=== PATIENT | male | born 1960 | race Caucasian/White ===

== ENCOUNTER 2023-11-24 07:33 | Day surgery (SDC) | payer OTHER, SELFPAY ==
[2023-11-22 14:34] VITALS: BMI 34.9
[2023-11-24 07:56] VITALS: BMI 35.3
[2023-11-24 07:59] VITALS: BP 128/78; PULSE 69; RESP 18; TEMP 36.1; O2SAT 99
--- NOTE | 2023-11-24 08:03 | HO.ANESPROP2 ---
[facility] Past Medical History Medical History (Updated 11/22/23 @ 14:35 by Fabienne Serna RN) HTN (hypertension) Anal fissure Family History Family history of problems with anesthesia: No Surgical History Surgical History (Updated 11/22/23 @ 14:36 by Fabienne Serna RN) Hx of excision of mass Hx of varicose vein ligation and stripping Hx of abdominoplasty Hx of knee surgery H/O colonoscopy History of Problems with Anesthesia: No Social History Social History (Updated 11/22/23 @ 14:36 by Fabienne Serna RN) Patient Tobacco Use Status: Former Tobacco user Quit Date: age 32 Use of substances other than those prescribed or required for medical reasons: No Are you DNR?: No Advance Directives: No Advance Directives Information Provided: Yes Meds Allergies Allergy/AdvReac Type Severity Reaction Status Date / Time No Known Allergies Allergy Unverified 11/21/23 14:57 Active Medications: Current Medications Sodium Biphosphate/Sodium Phosphate (Sodium Phosphate,[place]-Dibasic 133 Ml Enema) 133 ml OR ONCE PRN PRN Reason: Poor Colonoscopy Prep Results Home Medications Medication Instructions Recorded Confirmed Last Taken Type aspirin 81 mg tablet,delayed 81 mg PO DAILY 11/22/23 11/24/23 11/17/23 History release famotidine 40 mg tablet 40 mg PO BEDTIME 11/22/23 11/22/23 Unknown History lisinopril 10 mg tablet 10 mg PO DAILY 11/22/23 11/22/23 11/24/23 History multivitamin 1 tab PO DAILY 11/22/23 11/22/23 Unknown History Exam Height,Weight and Vital Signs: Height 5 ft 10 in Weight 111.674 kg Airway Mallampati Class: III TM Dist: >3cm Neck ROM: Full Assessment and Plan Assessment Anesthesia Assessment: Anesthesia Plan Discussed and Chart Reviewed Final Anesthetic Review Family History of Problems with Anesthesia: No History of Problems with Anesthesia: No NPO: Yes ASA Class: III Final Preanesthetic Review: No Changes in Pt Med Stat, Meds/Allgs Chart Reviewed, Consent Obtained/Reviewed and Anes Risks/Benef Reviewed Patient Risk: Intermediate Procedure Risk: Low Anesthetic Plan Anesthetic Plan: TIVA Disposition: Standard PACU
[2023-11-24 08:06] VITALS: BMI 35.3
[2023-11-24] MEDS: Lactated Ringers 1,000 ML 50 ML IVCONT (08:18)
[2023-11-24 09:19] VITALS: BP 92/53; PULSE 96; RESP 18; TEMP 36.3; O2SAT 94
--- NOTE | 2023-11-24 09:19 | P.BOP_ITS ---
Brief Operative Note Date of Service: 11/24/23 Pre-op diagnosis: Screening Post-op diagnosis: other (Polyp) Procedure: Colonoscopy to the cecum and TI with bx/removal of polyp Surgeon: Sd Tinsley MD Anesthesia: MAC Was an Classroom Coordinator used for this Procedure?: No Estimated blood loss (mL): 2.0 Pathology: other (A. Cecal polyp) Condition: stable Disposition: PACU
[2023-11-24 09:33] VITALS: BP 114/69; PULSE 65; RESP 16; TEMP 36.2; O2SAT 96
--- NOTE | 2023-11-24 09:52 | OP_ITS ---
DATE OF SERVICE: 11/24/2023 SURGEON: Sd Tinsley MD INDICATIONS: The patient presents for evaluation of colorectal cancer screening. Full consent has been obtained from him for this, including risks of bleeding and perforation. PREOPERATIVE DIAGNOSIS: Colorectal cancer screening. POSTOPERATIVE DIAGNOSIS: PROCEDURE PERFORMED: Colonoscopy to cecum and terminal ileum with biopsy and removal of polyp. ESTIMATED BLOOD LOSS: COMPLICATIONS: ANESTHESIA: Monitored anesthesia care. ASSISTANTS: SPECIMENS: POSTOPERATIVE DIAGNOSES: Colorectal cancer screening, small colon polyp, diverticulosis, and internal hemorrhoids. DESCRIPTION OF PROCEDURE: The patient was placed in the left lateral decubitus position. The digital rectal exam revealed no abnormalities. The Olympus video pediatric colonoscope was entered into the rectum and advanced easily to the cecum. Once in the cecum, I did identify cecal pouch with appendiceal orifice and a normal-appearing ileocecal valve. The terminal ileum was cannulated and appeared normal. The scope was withdrawn back in the colon. The entire cecum was well visualized. There was a 3 mm polyp near the appendiceal orifice that was biopsied and completely removed with a cold biopsy forceps. The remainder of the cecum appeared normal. The scope was slowly withdrawn assessing all mucosal surfaces carefully. Preparation was excellent. I did not visualize any sign of other polyps, colitis, nor angiodysplasia. There was a mild amount of sigmoid diverticulosis. In the rectum, scope was retroflexed visualizing internal hemorrhoids, but no other pathology. The rectal mucosa appeared normal. The scope was straightened and withdrawn from the patient. He tolerated the procedure well and was returned to the recovery area in stable condition. IMPRESSION: 1. Small colon polyp. 2. Diverticulosis. 3. Internal hemorrhoids. PLAN: The results of the biopsy will be checked. If this is a tubular adenoma, I would recommend a followup coloscopy in 5 years. If it is only hyperplastic, I would recommend a followup coloscopy in 10 years. He will otherwise see me on a p.r.n. basis. MD MAR Trimble/CHAYA / [id number]
== END 2023-11-24 10:10 | disposition home or self-care (01) ==
PROVIDERS: PCP Internal Medicine; Visit Provider Internal Medicine
PROC: 0DJD8ZZ Inspection of Lower Intestinal Tract, Via Natural or Artificial Opening Endoscopic (ICD-10-PCS; CPT 45378; principal; 2023-11-24 08:40)
DX: Z12.11 Encounter for screening for malignant neoplasm of colon (principal); K63.5 Polyp of colon; K57.30 Diverticulosis of large intestine without perforation or abscess without bleeding; K64.8 Other hemorrhoids; I10 Essential (primary) hypertension; Z79.82 Long term (current) use of aspirin; Z79.899 Other long term (current) drug therapy; Z98.890 Other specified postprocedural states
CPT/HCPCS: 45380; 88305; J2704